=== PATIENT | male | born 1990 | race Caucasian/White ===

== ENCOUNTER 2018-10-30 15:17 | Emergency (ER) | payer OTHER ==
[~2018-10-30] VITALS: Ht 185.4 cm; Wt 86.2 kg
== END 2018-10-30 19:04 | disposition home or self-care (01) ==
LOC: ER 15:17
DX: S43.085A Other dislocation of left shoulder joint, initial encounter (principal); W18.39XA Other fall on same level, initial encounter; Y93.89 Activity, other specified; Y92.832 Beach as the place of occurrence of the external cause; Y99.8 Other external cause status